=== PATIENT | male | born 1950 | race Caucasian/White ===

== ENCOUNTER 2020-04-08 14:00 | Emergency (ER) | payer MEDICARE, BC ==
[~2020-04-08] VITALS: Ht 167.6 cm; Wt 43.5 kg
--- NOTE | 2020-04-08 14:15 | NUR ---
[email or web address] home for noted for witnessed syncope s/p eating lunch 1 hr ago. Patient a/ox4, breathing even and unlabored, no sob noted. Needs attended, kept comfortable.
[2020-04-08] MEDS ORDERED: IV NS 0.9% 1,000 ML BAG IV ONE (14:30)
[2020-04-08 14:31] LABS: BASOPHILS % (AUTO) 0.3 % (0.0-2.0); EOSINOPHILS % (AUTO) 0.4 % (0.0-6.0); HEMATOCRIT 42 % (39-51); HEMOGLOBIN 13.7 g/dL (13.5-17.5); LYMPHOCYTES # (AUTO) 4.4 /CMM (0.8-4.8); LYMPHOCYTES % (AUTO) 28.9 % (20.0-44.0); MEAN CORPUSCULAR HGB CONC 33 g/dl (31.0-36.0); MEAN CORPUSCULAR VOLUME 89 fL (80-96); MONOCYTES # (AUTO) 1.1 /CMM (0.1-1.30); MONOCYTES % (AUTO) 7.1 % (2.0-12.0); NEUTROPHILS # (AUTO) 9.5 /CMM (1.8-8.9); NEUTROPHILS % (AUTO) 63.3 % (43.0-81.0); PLATELET COUNT (AUTO) 184 /CMM (150-450)
[2020-04-08 14:39] LABS: CALCIUM, SERUM 8.9 mg/dL (8.5-10.1); CARBON DIOXIDE 25 mmol/L (21-32); CHLORIDE 98 mmol/L (98-107); CREATININE 1.1 mg/dL (0.6-1.3); GLUCOSE 219 mg/dL (74-106); POTASSIUM 3.3 mmol/L (3.5-5.1); SODIUM SERUM 133 mmol/L (136-145); UREA NITROGEN, BLOOD 18 mg/dL (7-18)
[2020-04-08 14:45] LABS: ALANINE AMINOTRANSFERASE 117 U/L (12-78); ALBUMIN 3.1 g/dL (3.4-5.0); ALKALINE PHOSPHATASE 70 U/L (46-116); ASPARTATE AMINOTRANSFERASE 43 U/L (15-37); BILIRUBIN,DIRECT 0.2 mg/dL (0.0-0.2); BILIRUBIN,TOTAL 0.8 mg/dL (0.2-1.0); LIPASE 79 U/L (73-393); TOTAL PROTEIN, SERUM 6.8 g/dL (6.4-8.2)
[2020-04-08] MEDS ORDERED: AMLO2.5T4 PO (15:21)
[2020-04-08] MEDS ORDERED: ERGO500014 PO (15:21)
[2020-04-08] MEDS ORDERED: FINA5TAB11 PO (15:21)
[2020-04-08] MEDS ORDERED: TAMS-12 PO (15:21)
[2020-04-08] MEDS ORDERED: ROSU40TA23 PO (15:21)
--- NOTE | 2020-04-08 15:36 | NUR ---
MOVE SHEET COMPLETE AND CALLED FOR TELE BED.
--- NOTE | 2020-04-08 15:41 | NUR ---
[facility] CALLED SALES OFFICE ADMINISTRATOR PAGED.
[2020-04-08] MEDS ORDERED: Z GUARD REMEDY 2 OZ OINT TP PRN (16:00)
[2020-04-08] MEDS ORDERED: MAGNESIUM HYDROXIDE 30 ML UDC PO PRN (16:00)
[2020-04-08] MEDS ORDERED: ONDANSETRON HCL/PF 4 MG/2 ML VIAL IVP PRN (16:00)
[2020-04-08] MEDS ORDERED: ENOXAPARIN SODIUM 40 MG/0.4 ML DISP.SYRIN SQ SCH (16:00)
[2020-04-08] MEDS ORDERED: IV NS 0.9% 1,000 ML IV PRN (16:00)
[2020-04-08] MEDS ORDERED: HYDROCODONE/APAP 5/325MG TABLET PO PRN (16:00)
[2020-04-08] MEDS ORDERED: ACETAMINOPHEN 325 MG TABLET PO PRN (16:00)
[2020-04-08] MEDS ORDERED: ZOLPIDEM TARTRATE 5 MG TABLET PO PRN (16:00)
[2020-04-08] MEDS ORDERED: MAG HYDROX/AL HYDROX/SIMETH 30 ML UDC PO PRN (16:00)
[2020-04-08 16:12] LABS: BILIRUBIN,URINE Negative (NEGATIVE); BLOOD, URINE Small Ery/uL (NEGATIVE); COLOR,URINE Yellow (YELLOW); LEUKOCYTE ESTERASE ,URINE Large (NEGATIVE); NITRITE, URINE Positive (NEGATIVE); PROTEIN,URINE 100 mg/dl (NEGATIVE); UGLUCOSE 100 MG/DL mg/dL (NEGATIVE); UROBILINOGEN,URINE 0.2 EU/dL (0.2)
[2020-04-08 16:19] LABS: BACTERIA,URINE Moderate /HPF (None Seen); SQUAMOUS EPITHELIAL CELL,UR Few /HPF (None Seen); WBC,URINE 21-50 /HPF (0-3); YEAST,URINE Few /HPF (None Seen)
--- NOTE | 2020-04-08 16:24 | NUR ---
Patient resting, no distress noted. Covid swab sent.
[2020-04-08] MEDS ORDERED: IV NS 0.9% 1,000 ML IV ONE (16:30)
[2020-04-08] MEDS ORDERED: AMLODIPINE BESYLATE 2.5 MG TABLET PO PRN (16:30)
--- NOTE | 2020-04-08 17:43 | NUR ---
Patient and , refusing to stay in the hospital. Patient does not wish to proceed with medical care recommended by Dr. Montes De Oca. Patient given information related to possible complications, up to and including , which could occur as a result of leaving the hospital at this time. Patient verbalizes understanding of risks involved due to leaving against medical advice. Patient has signed AMA form. IV removed. Catheter intact and site benign. Pressure and 4x4 applied to site. No bleeding noted.
[2020-04-08 17:44] VITALS: BP 150/93
[2020-04-08] MEDS ORDERED: TAMSULOSIN 0.4 MG CAP.SR.24H PO SCH (22:00)
[2020-04-08] MEDS ORDERED: ATORVASTATIN 40 MG TABLET PO SCH (22:00)
[2020-04-09] MEDS ORDERED: ASPIRIN 81 MG TAB.CHEW PO SCH (09:00)
[2020-04-09] MEDS ORDERED: FINASTERIDE (5 MG) 5 MG TABLET PO SCH (09:00)
[2020-04-13] MEDS ORDERED: ERGOCALCIFEROL (VITAMIN D 2) 50,000 UNIT CAPSULE PO SCH (16:30)
== END 2020-04-08 17:47 | disposition left against medical advice (07) ==
LOC: ER 14:09
DX: E86.0 Dehydration (principal); E87.6 Hypokalemia; D72.829 Elevated white blood cell count, unspecified; I10 Essential (primary) hypertension; I69.341 Monoplegia of lower limb following cerebral infarction affecting right dominant side; N40.0 Benign prostatic hyperplasia without lower urinary tract symptoms; R73.9 Hyperglycemia, unspecified; Z20.828 Contact with and (suspected) exposure to other viral communicable diseases; R74.01 Elevation of levels of liver transaminase levels
CPT/HCPCS: 36415; 36600; 70450; 71045; 80048; 80076; 81001; 82803; 83690; 84484; 85025; 87077; 87081; 87086; 87186; 87426; 93005; 96360; 96361; 99285; J7030 ×2; 81000-TC; C9803